=== PATIENT | male | born 2000 | race Caucasian/White ===

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

== ENCOUNTER 2022-11-06 15:37 | Outpatient (AMB) | payer OTHER, SELFPAY ==
--- NOTE | 2022-11-06 16:00 | MHC.OFFWIV ---
Intake Vital Signs 11/06/22 16:06 Height 5 ft 10 in BP 100/60 Blood Pressure Location Lt brachial Position Sitting Pulse 73 Pulse Source Pulse Oximeter Temp 97.4 F Temp Source Temporal Artery Scan Pulse Oximetry (%) 98 Oxygen Delivery Method Room Air Intake Visit Reasons: EP, STD? Patient Tobacco Use Status: Never used Tobacco Allergies ibuprofen [From Motrin] Allergy (Unknown, Verified 11/07/22 05:56) unknown Environmental Allergy (Unknown, Uncoded 11/07/22 05:56) SNEEZING Medication List - Last Reconciled 11/07/22 by Norberto Helm MD No Known Home Meds Do you need a note to return to daycare/school/sports/work: No HPI EP, STD? HPI Details 22-year-old male presents to the office for a sick visit. He comes in with his girlfriend. Patient wants to be ruled out for STI. He came in with a swollen lymph node a few weeks ago in the femoral area. STI testing was negative. He feels a lymph node may still be there. He would like to be tested for HIV. Reports no discharge or secretions from the penis [facility] Medical History Allergies Anxiety Deviated septum Moderate persistent asthma Family History Mother No problems noted. Social History Household Members: Family Patient Tobacco Use Status: Never used Tobacco Physical Exam Vital Signs: Last Vital Signs Temp 97.4 F 11/06/22 16:06 Pulse 73 11/06/22 16:06 BP 100/60 11/06/22 16:06 Pulse Ox 98 11/06/22 16:06 Oxygen Delivery Method Room Air 11/06/22 16:06 Other: Genital area: Testicles are normal appearing. No tenderness in the epididymis. No lymph nodes palpable Assessment & Plan Assessment & Plan (1) History of exposure to infectious disease: Code(s): Z20.9 - Contact with and (suspected) exposure to unspecified communicable disease Plan: Patient reassured that no further medications are needed. Urine results were reviewed again with patient. HIV testing has been ordered Orders: Orders HIV Ab/Ag 11/06/22 Z20.9 - Contact with and (suspected) exposure to unspecified communicable disease CT NG by PCR 11/06/22 Z20.9 - Contact with and (suspected) exposure to unspecified communicable disease Coding Level of Care Code Est Pt Level 3 (21148) Diagnoses History of exposure to infectious disease Z20.9
[2022-11-06 16:06] VITALS: BP 100/60; PULSE 73; TEMP 36.3; O2SAT 98
== END 2022-11-06 16:42 | disposition home or self-care (01) ==
LOC: HO.HMGWI 15:37
PROVIDERS: PCP Physician Assistant; Visit Provider Internal Medicine
DX: Z20.9 Contact with and (suspected) exposure to unspecified communicable disease (principal)
CPT/HCPCS: 99213

== ENCOUNTER 2022-11-06 15:37 | Outpatient (REF) | payer OTHER, SELFPAY ==
[2022-11-08 14:12] LABS: CT PCR NOT DETECTED (Not Detect.); NG PCR NOT DETECTED (Not Detect.)
== END 2022-11-06 15:38 | disposition home or self-care (01) ==
LOC: HO.LNP 15:37
PROVIDERS: Visit Provider Internal Medicine
DX: Z20.9 Contact with and (suspected) exposure to unspecified communicable disease (principal)
CPT/HCPCS: 0353U

== ENCOUNTER 2022-11-07 14:20 | Outpatient (REF) | payer OTHER, SELFPAY ==
[2022-11-08 05:40] LABS: HIV AB/AG Nonreactive (Nonreactive); HIV Num 1 0.52 S/CO (0.00-0.99)
== END 2022-11-07 14:21 | disposition home or self-care (01) ==
LOC: HO.HMGCLDS 14:20
PROVIDERS: PCP Internal Medicine; Visit Provider Internal Medicine
DX: Z11.4 Encounter for screening for human immunodeficiency virus [HIV] (principal); Z20.9 Contact with and (suspected) exposure to unspecified communicable disease
CPT/HCPCS: 36415; 87389

== ENCOUNTER 2023-01-24 11:26 | Outpatient (AMB) | payer OTHER, SELFPAY ==
[2023-01-24 11:27] VITALS: BP 102/80; PULSE 81; O2SAT 97; BMI 21.1
--- NOTE | 2023-01-24 11:27 | MHC.PC.OV ---
Vital Signs 01/24/23 11:27 Height 5 ft 10 in Weight 147 lb BMI 21.1 BP 102/80 Blood Pressure Location Lt brachial Position Sitting Pulse 81 Pulse Source Pulse Oximeter Pulse Oximetry (%) 97 Oxygen Delivery Method Room Air Intake Visit Reasons: New Patient Allergies ibuprofen [From Motrin] Allergy (Unknown, Verified 01/24/23 11:46) unknown Environmental Allergy (Unknown, Uncoded 01/24/23 11:27) SNEEZING Medication List - Last Reconciled 01/24/23 by VICKY Treviño albuterol 90 mcg/actuation mcg inhalation cetirizine (Zyrtec) 10 mg PO DAILY PRN Tobacco use date assessed: 01/24/23 Dental Screening Dental Screen Date: 01/24/23 Did you have a dental visit in the last 12 months?: No Did you have a dental problem in the last 6 months where you did not have access to dental care?: No Was dental information given to patient?: Patient has dentist HPI HPI Comments History of Present Illness Details 22-year-old male new patient presents today with mother for physical exam. Past medical history significant for asthma, anxiety. Patient previously followed by Dr. Luke at [facility]. Patient reports was previously on prozac for anxiety however it made him have no appetite needed like to wait made him feel. Patient reports has been having to use his mother's nebulizer machine due to recent upper respiratory infection, patient states he had went to [facility] on was negative for COVID continues to experience shortness of breath and wheezing at times and requires albuterol nebulizer. Rx given for nebulizer machine, nebulizer medication and albuterol rescue inhaler sent to patient's pharmacy. Patient's Jared-7 Positive, patient requesting a referral to counseling and would like to start on medication for anxiety. Escitalopram 10 mg daily sent to patient's pharmacy. Patient also reports overall feeling weak, 15-20 lb weight loss in 6 months and joint pain. Mother has medical history of lupus requesting patient be evaluated for rheumatological problem, basic blood work, ESR, CRP, rheumatoid factor and [place]O ordered. Refused flu shot. Tdap current and last administered 2019. Recommended eye exam [facility] Medical History (Updated 01/24/23 @ 12:11 by VICKY Treviño) ADD (attention deficit disorder) Deviated septum Anxiety Allergies Moderate persistent asthma Surgical History (Updated 01/24/23 @ 11:37 by VU Cardona) History of rhinoplasty Family History (Updated 01/24/23 @ 11:38 by VU Cardona) Mother History of lupus nephritis Father History of bipolar disorder Other History of cancer Social History (Updated 01/24/23 @ 11:49 by VICKY Treviño) Household Members: Family Housing: House Alcohol intake: current Alcohol intake frequency: a few times a month Alcohol type: hard liquor Patient Tobacco Use Status: Never used Tobacco Substance Use Type: Marijuana Cognitive needs: No Hearing needs: No Vision needs: No Questionnaire PHQ-9 Over the last 2 weeks, how often have you been bothered by any of the following problems? 1. Little interest or pleasure in doing things: nearly every day 2. Feeling down, depressed, or hopeless: not at all 3. Trouble falling or staying asleep, or sleeping too much: not at all 4. Feeling tired or having little energy: not at all 5. Poor appetite or overeating: not at all 6. Feeling bad about yourself - or that you are a failure or have let yourself or your family down: not at all 7. Trouble concentrating on things, such as reading the newspaper or watching television: more than half the days 8. Moving or speaking so slowly that other people could have noticed. Or the opposite - being so fidgety or restless that you have been moving around a lot more than usual: not at all 9. Thoughts that you would be better off or of hurting yourself in some way: not at all Total score: 5 Depression Screening Interpretation: Negative Depression Screening Done: Yes 54147 - PHQ-9 Billing: Yes Source: Developed by Drs. Efren Dooley, Lilly Ash, Sorin Velasquez and colleagues, with an educational jeremías from [employer]. Thrive Questionnaire Date Thrive assessed: 01/24/23 I am a: Patient What is your living situation today?: I have a steady place to live Within the past 12 months, did the food you bought not last and you didn't have the money to get more?: Never true Within the past 12 months, did you worry whether your food would run out before you got money to buy more?: Never true Do you have trouble paying for medicines?: No Do you have trouble getting transportation to medical appointments?: No Do you have trouble paying your heating and electricity bill?: No Do you have trouble taking care of your child, family member or friend?: No Do you have trouble with day-to-day activities such as bathing, preparing meals, shopping, managing finances, etc.?: No Are you currently unemployed and looking for a job?: No Are you interested in more education?: No Please select the resources that you would like help with: None AUDIT C Alcohol Use Questionnaire (AUDIT-C) 1. How often do you have a drink containing alcohol?: Never Total Score: 0 JARED-7 AMB Questionnaire JARED-7 Date JARED - 7 assessed: 01/24/23 Feeling nervous, anxious, or on edge: 3 = Nearly every day Not being able to stop or control worryin = Nearly every day Worrying too much about different things: 3 = Nearly every day Trouble relaxin = Several days Being so restless that it is hard to sit still: 3 = Nearly every day Becoming easily annoyed or irritable: 3 = Nearly every day Feeling afraid as if something awful might happen: 1 = Several days Total JARED-7 score (0-4 normal; 5-9 mild; 10-14 moderate; 15-21 severe): 17 Source: Developed by Drs. Efren Dooley, Lilly Ash, Sorin Velasquez and colleagues, with an educational jeremías from [employer]. JARED-7 Assessment Billing JARED-7 Assessment Tool: JARED-7 Assessment 44237 Review of Systems Const Denies chills, Denies fatigue, Denies fever(s) and Denies poor appetite Eyes Denies no additional complaints ENT Reports Normal hearing present Card Denies chest pain, Denies syncope, Denies rapid heart rate and Denies dyspnea Resp Denies cough and Denies dyspnea GI Denies change in stool character, Denies constipation, Denies diarrhea, Denies nausea and Denies vomiting Denies dysuria, Denies urinary frequency and Denies urinary urgency Neuro Reports Normal hearing present, Denies confusion and Denies syncope Psych Denies confusion Endo Denies fatigue Physical exam (Primary Care) Vital Signs: Last Vital Signs Pulse 81 01/24/23 11:27 BP 102/80 01/24/23 11:27 Pulse Ox 97 01/24/23 11:27 Oxygen Delivery Method Room Air 01/24/23 11:27 BMI result Body Mass Index 21.1 Tobacco/Smoking Status: Tobacco use Status Tobacco use date assessed 01/24/23 01/24/23 11:37 Patient Tobacco Use Status Never used Tobacco 01/24/23 11:49 PHQ-9: PHQ-9 Score PHQ-9: Total score 5 01/24/23 11:53 Depression Screening Interpretation: Negative Thrive Assessment: Date of Thrive Assessment Date Thrive assessed 01/24/23 01/24/23 11:37 Const General: No confusion Orientation/consciousness: No confusion HENMT Head: Yes normocephalic and Yes atraumatic Ears: external ears normal and TM's normal bilaterally General nose exam: Normal external nose present and Normal nasal mucous membranes and turbinates present Face and sinus: Yes normal facial exam and Yes sinuses nontender Mouth: moist mucous membranes Throat: Yes tonsils normal Eyes Conjunctivae: conjunctivae normal Sclerae: sclerae normal Pupils: Equal, round and reactive pupils present and Pupils normal by confrontation EOM: EOMs intact bilaterally Direct Ophthalmoscopy: normal light reflex Neck Neck: Yes no lymphadenopathy and Yes supple Thyroid: Thyroid normal Chest Chest palpation & inspection: normal inspection of the chest Resp Effort & Inspection: normal respiratory effort Auscultation: clear to auscultation bilaterally, no crackles, no rhonchi and no wheezes Cardio Rate: regular rate Rhythm: regular rhythm Peripheral pulses: radial pulses present and dorsalis pedis present GI Inspection: Yes normal to inspection Palpation (GI): Soft to palpation, nontender and No hepatosplenomegaly present Auscultation: normoactive bowel sounds Skin General skin exam: no rashes or lesions noted Neuro General: No confusion Cranial nerves: Yes Equal, round and reactive pupils present and Yes Normal hearing present Cognition (Neuro): normal cognition Gait exam (Neuro): Normal gait present Motor exam (neuro): 5/5 motor strength present throughout Deep tendon reflexes (DTR's): Right brachioradialis reflex intensity grade: 2+, Left brachioradialis reflex intensity grade: 2+, Right patellar reflex intensity grade: 2+ and Left patellar reflex intensity grade: 2+ Extrem General: No edema Assessment and Plan Assessment & Plan (1) Anxiety: Code(s): F41.9 - Anxiety disorder, unspecified Plan: Escitalopram 10 mg daily started. Referral entered for counseling. Will follow-up on anxiety and one-month. (2) Mild intermittent asthma: Code(s): J45.20 - Mild intermittent asthma, uncomplicated Qualifiers: Asthma complication type: with acute exacerbation Qualified Code(s): J45.21 - Mild intermittent asthma with (acute) exacerbation Plan: Nebulizer prescription handed to patient. Albuterol inhaler and nebulizer treatment sent to patient's pharmacy. (3) Weight loss: Code(s): R63.4 - Abnormal weight loss Plan: Complete blood work ordered to further evaluate. (4) Polyarthralgia: Code(s): M25.50 - Pain in unspecified joint Plan: ESR, CRP, rheumatoid factor and OR[place]O ordered given patient has positive family history for rheumatological disorders and has been complaining overall weakness and joint pain. Plan Follow up in 1 month 1 year physical exam follow up Orders: Orders TSH reflex Free T4 Today Z13.29 - Encounter for screening for other suspected endocrine disorder ORLANDO Reflex Titer and Pattern Today M25.50 - Pain in unspecified joint C Reactive Protein Today M25.50 - Pain in unspecified joint Erythrocyte Sedimentation Rate Today M25.50 - Pain in unspecified joint Complete Blood Count Auto Diff Today R63.4 - Abnormal weight loss Comprehensive [place]. Panel Fast Today F41.9 - Anxiety disorder, unspecified Rheumatoid Factor Today M25.50 - Pain in unspecified joint Referrals Counseling Referral F41.9 - Anxiety disorder, unspecified Psychiatry Referral F41.9 - Anxiety disorder, unspecified Medications: New albuterol sulfate 0.63 mg (3 mL) inhalation Q4-6H PRN 75 mL 0RF shortness of breath or wheezing J45.20 - Mild intermittent asthma, uncomplicated escitalopram oxalate 10 mg PO DAILY 30 tabs 3RF F32.A - Depression, unspecified, F41.9 - Anxiety disorder, unspecified cetirizine (Zyrtec) 10 mg PO DAILY PRN 30 caps 0RF allergy symptoms miscellaneous medical supply nebulizer machine and supplies 1 ea miscellaneous ONCE 1 ea 0RF J45.20 - Mild intermittent asthma, uncomplicated albuterol sulfate 90 mcg/actuation (Ventolin HFA) 2 puffs inhalation Q4-6H PRN 6.7 grams 0RF shortness of breath or wheezing Coding Level of Care Code New Pt Prev Care 18-39yr(11624 Diagnoses Anxiety F41.9 Mild intermittent asthma with acute exacerbation J45.21 Asthma complication type: with acute exacerbation Weight loss R63.4 Polyarthralgia M25.50 Additional Codes JARED-7 Assessment Billing - JARED-7 Assessment Tool: JARED-7 Assessment [id number] ([id number])
== END 2023-01-24 12:16 | disposition home or self-care (01) ==
PROVIDERS: PCP Internal Medicine; Visit Provider Nurse Practitioner Family
DX: Z00.00 Encounter for general adult medical examination without abnormal findings (principal); F41.9 Anxiety disorder, unspecified; J45.21 Mild intermittent asthma with (acute) exacerbation; R63.4 Abnormal weight loss; M25.50 Pain in unspecified joint
CPT/HCPCS: 99385

== ENCOUNTER 2023-01-24 12:21 | Outpatient (REF) | payer OTHER, SELFPAY ==
[2023-01-24 12:34] LABS: MANUAL DIFF FLAG NO
[2023-01-24 13:44] LABS: Basophils Absolute Auto 0.1 X10*3/uL (0.0-0.2); Basophils Percent Auto 0.8 % (0-2); Eosinophils Absolute Auto 0.3 X10*3/uL (0.0-0.4); Hematocrit 46.9 % (42.0-52.0); Hemoglobin 15.5 g/dl (14.0-18.0); Imm Gran Abs Auto 0.02 X10*3/uL (0.00-0.03); Imm Gran Pct Auto 0.3 % (0.0-0.4); Lymphocytes Absolute Auto 2.7 X10*3/uL (1.2-4.9); Lymphocytes Percent Auto 43.5 % (20-40); Mean Corpuscular Hemoglobin 30.4 pg (27.0-33.0); Mean Platelet Volume 11.8 fL (9.4-12.4); Monocytes Absolute Auto 0.7 X10*3/uL (0.1-1.2); Monocytes Percent Auto 11.6 % (2-11); Neutrophils Absolute Auto 2.5 x10*3/uL (2.0-8.3); Neutrophils Percent Auto 39.8 % (45-73); Platelet Count 256 X10*3/uL (160-400); Red Cell Distribution Width 13.7 % (11.0-16.0); White Blood Count 6.3 X10*3/uL (4.8-10.8)
[2023-01-24 14:17] LABS: Rheumatoid Factor < 13.0 IU/mL (<15.0)
[2023-01-24 14:24] LABS: Erythrocyte Sedimentation Rate 2 MM/HR (0-15)
[2023-01-24 14:47] LABS: Alanine Aminotransferase 19 U/L (0-40); Albumin Level 4.6 g/dL (3.5-5.0); Alkaline Phosphatase 54 U/L (39-117); Anion Gap 13 (12-20); Aspartate Amino Transferase 19 U/L (5-37); Bilirubin Total 0.4 mg/dL (0.0-1.0); Blood Urea Nitrogen 15 mg/dL (9-16); C Reactive Protein 0.31 mg/dL (< or = 0.50); Calcium 9.9 mg/dL (8.4-10.2); Carbon Dioxide 27 mmol/L (22-29); Chloride 104 mmol/L (96-108); Estimated Glomerular Filt Rate > 60; Glucose Fasting 80 mg/dL (60-99); Sodium 140 mmol/L (135-145); TSH reflex Free T4 3.02 uIU/mL (0.32-4.0); Total Protein 7.7 g/dL (6.5-8.0)
[2023-01-29 12:33] LABS: Anti Nuclear Antibody Screen POSITIVE (NEGATIVE); Anti Nuclear Antibody Titer 1:40 titer
== END 2023-01-24 12:22 | disposition home or self-care (01) ==
LOC: HO.LAB 12:21
PROVIDERS: PCP Nurse Practitioner Family; Visit Provider Nurse Practitioner Family
DX: M25.50 Pain in unspecified joint (principal); F41.9 Anxiety disorder, unspecified; R63.4 Abnormal weight loss; Z13.29 Encounter for screening for other suspected endocrine disorder
CPT/HCPCS: 36415; 80053; 84443; 85025; 85652; 86038; 86039; 86140; 86431

== ENCOUNTER 2023-04-25 14:54 | Outpatient (AMB) | payer OTHER, SELFPAY ==
[2023-04-25 15:06] VITALS: BP 94/60; PULSE 74; TEMP 36.7; O2SAT 97; BMI 20.1
--- NOTE | 2023-04-25 15:06 | MHC.OFFVIS ---
Intake Vital Signs 04/25/23 15:06 Height 5 ft 10 in Weight 140 lb BMI 20.1 BP 94/60 Blood Pressure Location Rt brachial Position Sitting Pulse 74 Pulse Source Pulse Oximeter Temp 98.1 F Temp Source Skin Pulse Oximetry (%) 97 Oxygen Delivery Method Room Air Intake Visit Reasons: Joint pain Intake Note: New pt presents today for +ORLANDO consult. C/o multiple joint pains, specially knees and back. Reports body feels weak. 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 Accompanied by: Mother Allergies ibuprofen [From Motrin] Allergy (Unknown, Verified 04/25/23 15:09) unknown Environmental Allergy (Unknown, Uncoded 04/25/23 15:09) SNEEZING Medication List - Last Reconciled 04/25/23 by Verónica Thomson MD albuterol sulfate 0.63 mg (3 mL) inhalation Q4-6H PRN albuterol sulfate 90 mcg/actuation (Ventolin HFA) 2 puffs inhalation Q4-6H PRN cetirizine (Zyrtec) 10 mg PO DAILY PRN escitalopram oxalate 10 mg PO DAILY miscellaneous medical supply 1 ea miscellaneous ONCE HPI HPI Comments History of Present Illness Details This is a 23-year-old male who is referred for evaluation of a positive ORLANDO. Patient's mother accompanies him this visit. She mentions that she got him tested for lupus as she has lupus herself. She is in her 40s. She states that she was diagnosed based on a malar rash and arthralgias. For many years. [facility] and she is on hydroxychloroquine. She stated that she has had 15 pregnancies in total including 11 miscarriages and 4 children. She can not specify whether there was a reason for her miscarriages. She was not on blood thinners while and is unaware of any history of DVT/PE. Patient has been having generalized fatigue and pains especially in his hips, lower back. He has lost weight but he has not been eating well. He does not have a good appetite. He states that he is angry all the time. He has generalized weakness in the morning. He denies any fevers. Denies skin rashes. Denies any blood or frothy urine. Denies any swollen joints. No history of DVT/PE [facility] Medical History ADD (attention deficit disorder) Deviated septum Anxiety Allergies Moderate persistent asthma Surgical History History of rhinoplasty Family History (Updated 04/25/23 @ 15:36 by Verónica Thomson MD) Mother Lupus (systemic lupus erythematosus) Father History of bipolar disorder Other History of cancer Social History Household Members: Significant Other Housing: House Alcohol intake: current Alcohol intake frequency: holidays/special occasions only Patient Tobacco Use Status: Never used Tobacco Substance Use Type: Marijuana Current occupational status: employed Current occupation: Transportation Cognitive needs: No Hearing needs: No Vision needs: No Review of Systems Const Reports fatigue, Reports weakness and Reports weight loss Eyes Reports itchy eyes ENT Reports dysphagia and Reports hoarseness Card Reports dyspnea Resp Reports cough, Reports dyspnea and Reports wheezing GI Reports dysphagia Musc Reports back pain and Reports arthralgias Skin/Breast Denies rash Neuro Reports weakness Psych Reports anxiety Endo Reports fatigue Aller/Immun Reports itchy eyes and Reports wheezing Physical Exam Vital Signs: Last Vital Signs Temp 98.1 F 04/25/23 15:06 Const General: cooperative, healthy appearing and comfortable Nutritional Appearance: average body habitus Orientation/consciousness: patient oriented x3 Limitations: no limitations HEENT Head: Yes normocephalic and Yes atraumatic Mouth: moist mucous membranes Resp Effort & Inspection: normal respiratory effort and able to speak in complete sentences Auscultation: clear to auscultation bilaterally Cardio Rate: regular rate Rhythm: regular rhythm Skin General skin exam: no rashes or lesions noted Neuro General: patient oriented x3 Extrem Other: Bilateral positive thumb sign Bilateral hyperextensible elbows No active synovitis Normal nailfold capillaroscopy Bilateral knee flexion and extension without pain Assessment & Plan Assessment & Plan (1) Positive ORLANDO (antinuclear antibody): Code(s): R76.8 - Other specified abnormal immunological findings in serum Plan: This is a 23-year-old male who presents for evaluation of positive ORLANDO. Labs showed positive ORLANDO 1-40 speckled. His mother has lupus. Upon evaluation I do not see any signs suggestive of an autoimmune rheumatic disease. ORLANDO 1-40 is generally considered negative in the Rheumatology whorled and is of no clear significance. Discussed signs and symptoms that are suggestive of an autoimmune rheumatic disease. Advised patient to return to clinic for any new or progressive symptoms. Follow-up as needed Plan I spent 30 minutes reviewing patient's chart, evaluating patient, counseling patient and documenting in the chart Coding Level of Care Code New Pt Level 3 (82545) Diagnoses Positive ORLANDO (antinuclear antibody) R76.8
== END 2023-04-25 15:28 | disposition home or self-care (01) ==
PROVIDERS: PCP Nurse Practitioner Family; Visit Provider Student in an Organized Health Care Education/Training Program
DX: R76.8 Other specified abnormal immunological findings in serum (principal)
CPT/HCPCS: 99203

== ENCOUNTER → 2023-04-25 14:54 | Outpatient (BNVA) | payer OTHER, SELFPAY | PROVIDERS: PCP Nurse Practitioner Family; Visit Provider Student in an Organized Health Care Education/Training Program | DX: R76.8 Other specified abnormal immunological findings in serum (principal) | CPT/HCPCS: 99202 ==

== ENCOUNTER 2024-11-08 22:47 | Emergency (ER) | payer OTHER, SELFPAY ==
[2024-11-08 22:50] VITALS: BP 102/53; PULSE 103; RESP 18; TEMP 36.7; O2SAT 94; BMI 21.7
--- OUTSIDE RECORDS SUMMARY | 2024-11-09 00:14 | XMS_ITS | Clinical Summary ---
Author Organization [facility] Address [address] [place] [id number] Phone Care Team Providers Care Batch Mixer Operator Name Role Phone Pcp, Unknown Primary Care Provider Unavailabl e Allergies Active Allergy Reactions Criticality Noted Date Comments Ibuprofen Anaphylaxis High 01/21/2023 Social History Tobacco Use Types Packs/Day Years Used Date Smoking Tobacco: Never Assessed Education Answer Date Recorded Are you interested in more education? Not on prudencio e 01/22/2023 Are you concerned about learning? Not on file 01/22/2023 No 01/22/2023 No 01/22/2023 Digital Access Answer Date Recorded No 01/22/2023 No 01/22/2023 Reliable internet access at home? Not on file 01/22/2023 Device with a working camera? Not on file Intimate Partner Violence Answer Date R ecorded Are you denied basic needs s uch as food, clothing, or medical care? No 01/22/2023 In the past 12 months have y ou been in a relationship with a person who hurts, threatens, or tries to control you? No 01/22/2023 Are you denied basic needs s uch as food, clothing, or medical care? No 01/22/2023 In the past 12 months have y ou been in a relationship with a person who hurts, threatens, or tries to control you? No 01/22/2023 Sex and Gender Information Value Date Recorded Sex Assigned at Not on file Legal Sex Male 9:44 PM EDT Gender Identity Not on file Sexual Orientation Not on file Last Filed Vital Signs Vital Sign Reading Time Taken Comments Blood Pressure 117/77 01/22/2023 1:05 AM EDT Pulse 110 01/22/2023 1:05 AM EDT Temperature 36.8 C (98.2 F) 01/22/2023 1:05 AM EDT Respiratory Rate 18 01/22/2023 1:05 AM EDT Oxygen Saturation 95% 01/22/2023 1:05 AM EDT Inhaled Oxygen Concentration - - Weight 68 kg (150 lb) 01/21/2023 10:26 PM EDT Height 182.9 cm (6') 01/21/2023 10:26 PM EDT Body Mass Index 20.34 01/21/2023 10:26 PM EDT Plan of Treatment Health Maintenance Due Date Last Done Comments Adult Td,Tdap Booster 2002 DEPRESSION SCREENING 2014 SMOKING Hx and SMOKELESS TOB ACCO SCREENING 2015 HPV VACCINES (1 - Male 3-dos e series) 2017 MENINGOCOCCAL VACCINES (B) ( 1 of 2 - Standard) 2018 HEPATITIS C SCREENING 01/27/2020 HIV ONE-TIME SCREENING (18-6 5 YEARS) 01/27/2020 COVID-19 VACCINE ( - 2023-2 5 season) 2023 HEPATITIS A VACCINES Aged Out No long er eligible based on patient's age to complete this topic HIB VACCINES Aged Out No longer eligi ble based on patient's age to complete this topic MENINGOCOCCAL VACCINES (ACWY) Aged Out No longer eligible based on patient's age to complete this topic PNEUMOCOCCAL VACCINES (0-49 years) Aged Out No longer eligible based on patient's age to complete this topic Medical Devices Not on file [place] [place] [address] ACO Care Teams Batch Mixer Operator Relationship Specialty Start Date End Date Pcp, Unknown PCP - General 01/22/23 Additional Source Comments The information contained in this document represents components of the legal health record. It is not the complete legal health record.[facility]
--- OUTSIDE RECORDS SUMMARY | 2024-11-09 00:14 | XMS_ITS | Clinical Summary ---
Author Organization [facility] it Address [address] [place] [address] Care Team Providers Care Specifications Writer Name Role Phone Unavailable Primary Care Provider Unavailabl e Social History Tobacco Use Types Packs/Day Years Used Date Smoking Tobacco: Never Assessed Sex and Gender Information Value Date Recorded Sex Assigned at Not on file Legal Sex Male 1:15 AM EST Gender Identity Not on file Sexual Orientation Not on file Plan of Treatment Health Maintenance Due Date Last Done Comments HPV Vaccines (1 - Male 3-dos e series) 2017 Meningococcal B Vaccine (1 o f 2 - Standard) 2018 DTaP,Tdap,and Td Vaccines (1 - Tdap) 2021 Hepatitis B Vaccines (1 of 3 - 19+ 3-dose series) 2021 COVID-19 Vaccine (1 - 2023-2 5 season) 2023 Depression Screening 04/08/2024 Influenza Vaccine (#1) 2024 HIB Vaccines Aged Out No longer eligi ble based on patient's age to complete this topic Hepatitis A Vaccines Aged Out No long er eligible based on patient's age to complete this topic IPV Vaccines Aged Out No longer eligi ble based on patient's age to complete this topic MMR Vaccines Aged Out No longer eligi ble based on patient's age to complete this topic Meningococcal ACWY Vaccine Aged Out N o longer eligible based on patient's age to complete this topic Pneumococcal Vaccine: Pediat rics (0 to 5 Years) and At-Risk Patients (6 to 49 Years) Aged Out No longer eligible b ased on patient's age to complete this topic RSV Immunization Patients Un edis 20 months Aged Out No longer eligible b ased on patient's age to complete this topic Varicella Vaccines Aged Out No longer eligible based on patient's age to complete this topic
--- NOTE | 2024-11-09 00:35 | ED_ITS ---
HPI - General Adult General Chief complaint: Skin/Abscess/Foreign Body Stated complaint: right thigh in grown hair/ cyst Time Seen by Provider: 11/09/24 00:30 Source: patient Limitations: no limitations History of Present Illness ED Provider: Ashley Shields PA-C HPI narrative: 24-year-old male presents with concern for right thigh infection. Patient states he was seen at urgent care week ago, told he had an ingrown hair over lateral right thigh. He was placed on antibiotics, he can not recall which antibiotic. Patient states the swelling has increased in size and become more painful, he is having active pus drain from the site. Denies fever. Related Data Previous Rx's ?Medication ?Instructions ?Recorded albuterol sulfate 0.63 mg/3 mL 0.63 mg (3 mL) inhalati on Q4-6H 01/24/23 solution for nebulization PRN shortness of breath or wheezing #75 mL escitalopram oxalate 10 mg tablet 10 mg PO DAILY #30 t abs 01/24/23 miscellaneous medical supply 1 ea miscellaneous ONCE # 1 ea 01/24/23 albuterol sulfate 90 mcg/actuation 2 puff inhalation Q 4-6H PRN 02/21/23 aerosol inhaler (Ventolin HFA) shortness of breath or wheezing #6.7 grams cetirizine 10 mg tablet 10 mg PO DAILY PRN for aller gies 08/25/23 #90 tabs doxycycline hyclate 100 mg capsule 100 mg PO BID #13 c aps 11/09/24 Allergies Allergy/AdvReac Type Severity Reaction Status Date / Time ibuprofen (From Motrin) Allergy Unknown unknown Verified 11/08/24 22:55 Environmental Allergy Unknown SNEEZING Uncoded 04/25/23 15:09 Review of Systems Review of Systems: Yes all other systems are reviewed and are negative Constitutional: Constitutional: Denies fatigue and Denies fever(s) Cardiovascular: Cardiovascular: Denies chest pain and Denies dyspnea Respiratory: Respiratory: Denies dyspnea Integumentary/Breasts: Skin/Breast: Reports erythema and Reports sores Endocrine: Endocrine: Denies fatigue PMFSH Past Medical History Attestation statement: The following information was validated with the patient. Medical History ADD (attention deficit disorder) Deviated septum Anxiety Allergies Moderate persistent asthma Surgical History History of rhinoplasty Family History Family History (Updated 04/25/23 @ 15:36 by Verónica Thomson MD) Mother Lupus (systemic lupus erythematosus) Father History of bipolar disorder Other History of cancer Social History Social History Household Members: Significant Other Housing: House Alcohol intake: current Alcohol intake frequency: holidays/special occasions only Patient Tobacco Use Status: Never used Tobacco Substance Use Type: Marijuana Advance Directives: No Advance Directives Information Provided: No Current occupational status: employed Current occupation: Transportation Cognitive needs: No Hearing needs: No Vision needs: No Physical Exam ED Vital Signs: Vital Signs - 24 hr 11/08/24 22:50 Temperature 98.0 F Pulse Rate 103 H Respiratory Rate 18 Blood Pressure 102/53 L Pulse Oximetry 94 Oxygen Delivery Method Room Air BMI result Body Mass Index 21.7 Const Other: Alert well-appearing Orientation/consciousness: patient oriented x3 Resp Effort & Inspection: normal respiratory effort Cardio Other: Normal peripheral perfusion Skin Other: Warm dry no rash Neuro General: patient oriented x3, gait normal, no focal motor deficits and CN's II- XI intact bilaterally Extrem Other: Tender, erythematous, warm and indurated region over right lateral thigh, actively draining pus Psych Other: Cooperative Medications Administered Discontinued Medications Generic Name Dose Route Start Last Admin Trade Name Freq PRN Reason Stop Dose Admin Doxycycline Monohydrate 100 mg 11/09/24 00:38 11/09/24 00:49 Doxycycline Monohydrate 100 Mg Capsule PO 11/09/24 00:39 100 mg ONCE ONE Administration Procedures Abscess I/D Site: lower extremity Side (if applicable): right Sedation/analgesia: none Local Anesthetic: lidocaine 1% and with epi Amount of anesthesia used (mL): 3 Technique: incised with blade and ultrasound guided Amount of fluid expressed (mL): 5 Sent for culture/gram staining?: No Irrigation: Yes Packing used?: iodoform Medical Decision Making Medical Decision Making MDM Narrative: 24-year-old male presents with concern for right thigh infection. Patient states he was seen at urgent care week ago, told he had an ingrown hair over lateral right thigh. He was placed on antibiotics, he can not recall which antibiotic. Patient states the swelling has increased in size and become more painful, he is having active pus drain from the site. Denies fever. No chronic issues History: Per patient I have considered the following differential diagnoses: Cellulitis, purulent cellulitis, abscess, cyst Plan: I have viewed the site with bedside ultrasound, The patient has a an abscess, I will I and D, placing on doxycycline. No indication for imaging it is superficial Discharge Plan Discharge Clinical Impression: Abscess of right thigh Patient Disposition: Home, Self-Care Instructions: Abscess (ED), Incision and Drainage (ED) Additional Instructions: You had an abscess that was drained. See home care instructions. Apply warm compresses to the site, twice a day. In 2 days, while in the shower, allow the hot water to run over the site, then remove the drain. Take the doxycycline as directed. Follow up with your primary care as needed. Prescriptions: New doxycycline hyclate 100 mg capsule 100 mg PO BID Qty: 13 0RF No Action albuterol sulfate [Ventolin HFA] 90 mcg/actuation HFA aerosol inhaler 2 puff inhalation Q4-6H PRN (Reason: shortness of breath or wheezing) Qty: 6.7 3RF cetirizine 10 mg tablet 10 mg PO DAILY PRN (Reason: for allergies) Qty: 90 0RF ceftriaxone 500 mg recon soln 500 mg IM ONCE Qty: 1 0RF escitalopram oxalate 10 mg tablet 10 mg PO DAILY Qty: 30 3RF miscellaneous medical supply Kit 1 ea miscellaneous ONCE Qty: 1 0RF Rx Instructions: nebulizer machine and supplies albuterol sulfate 0.63 mg/3 mL solution for nebulization 0.63 mg inhalation Q4-6H PRN (Reason: shortness of breath or wheezing) Qty: 75 0RF Stand Alone Forms: Work/School Release Print Language: [place]
--- NOTE | 2024-11-09 00:49 | PC.NURSE ---
Medicated per MAR.
--- NOTE | 2024-11-09 00:59 | PC.NURSE ---
SANIYA at bedside to drain wound.
[2024-11-09 01:14] VITALS: BP 110/60; PULSE 74; RESP 16; TEMP 36.9; O2SAT 98
== END 2024-11-09 01:15 | disposition home or self-care (01) ==
PROVIDERS: Emergency Provider Emergency Medicine
DX: L02.415 Cutaneous abscess of right lower limb (principal); M79.659 Pain in unspecified thigh
CPT/HCPCS: 10060; 99282; 99284